=== PATIENT | male | born 1980 | race Caucasian/White ===

== ENCOUNTER 2022-11-07 23:19 | Emergency (ER) | payer SELFPAY ==
[2022-11-07] MEDS ORDERED: Sodium Chloride 0.9% 1,000 ML IV ONE (23:41)
[2022-11-07] MEDS ORDERED: Ondansetron 4 MG/2 ML SDV IVPUSH ONE (23:41)
[2022-11-07] MEDS ORDERED: Aspirin 81 MG Tab.Chew PO ONE (23:41)
[2022-11-08] MEDS ORDERED: Morphine 4 MG/ML Syringe IVPUSH ONE ×3 (00:02→02:25)
[2022-11-08 00:23] LABS: CARBON DIOXIDE,CO2 25.7 mmol/L (21.0-32.0); POTASSIUM,K 3.7 mmol/L (3.5-5.1)
[2022-11-08] MEDS ORDERED: Ondansetron 4 MG/2 ML SDV IVPUSH ONE (01:04)
[2022-11-08 01:36] LABS: CORONAVIRUS COVID-19 NAA NEGATIVE (NEGATIVE); INFLUENZA A NAA NEGATIVE (NEGATIVE); INFLUENZA B NAA NEGATIVE (NEGATIVE)
== END 2022-11-08 02:51 | disposition home or self-care (01) ==
LOC: MW.ED 23:19
DX: R51.9 Headache, unspecified (principal); B34.9 Viral infection, unspecified; E11.9 Type 2 diabetes mellitus without complications; Z88.2 Allergy status to sulfonamides; Z88.1 Allergy status to other antibiotic agents; Z86.16 Personal history of COVID-19; Z20.822 Contact with and (suspected) exposure to COVID-19; Z79.4 Long term (current) use of insulin
CPT/HCPCS: 0240U; 36415; 70450; 71045; 80053; 82009; 82803; 82947; 83605; 84484; 85025; 85610; 85730; 93005; 96361; 96374; 96375; 96376; 99285; A9270; J2270; J2405; J7030